=== PATIENT | female | born 1945 | race Caucasian/White ===

== ENCOUNTER 2016-06-30 12:40 | Emergency (ER) | payer MEDICARE, OTHER ==
[2016-06-30] MEDS ORDERED: Aspirin Low Dose CHEW TAB* 81 MG PO ONE (13:59)
[2016-06-30] MEDS ORDERED: NS 0.9% 1000 ML* 1,000 ML IV ONE (14:00)
--- NOTE | 2016-06-30 14:36 | RAD ---
Indication: Chest pain. Single frontal view of the chest performed at 1410 hours was reviewed. Comparison is made with previous exam dated April 16, 2016. No mediastinal shift is noted. Heart is of normal size and configuration. Right upper lobe airspace disease consistent with right upper lobe pneumonia is present. IMPRESSION: RIGHT UPPER LOBE PNEUMONIA.
[2016-06-30 14:56] LABS: Hematocrit 36 % (35-47); Hemoglobin 11.7 g/dl (12.0-16.0); Mean Corpuscular HGB Conc 33 g/dl (31-36); Mean Corpuscular Hemoglobin 31 pg (27-31); Mean Corpuscular Volume 94 fL (80-97); Mean Platelet Volume 8 um3 (7.4-10.4); Red Cell Distribution Width 14 % (10.5-15); White Blood Count 15.3 10^3/ul (3.5-10.8)
[2016-06-30] MEDS ORDERED: Levofloxacin 750 MG IVPREMIX(* 750 MG/150 ML BAG IVPB ONE (15:13)
[2016-06-30 15:31] LABS: Albumin 3.2 g/dL (3.2-5.2); BUN/Creatinine Ratio 21.4 (8-20); Calcium 8.5 mg/dL (8.6-10.3); EGFR African American 137.6 (>60); Globulin 2.6 g/dL (2-4); Magnesium 1.9 mg/dL (1.9-2.7); Potassium 3.5 mmol/L (3.5-5.0); Total Bilirubin 0.4 mg/dL (0.2-1.0); Total Protein 5.8 g/dL (6.4-8.9)
[2016-06-30 15:41] LABS: TSH (Thyroid Stimulating Horm) 0.26 mcIU/mL (0.34-5.60)
[2016-06-30 15:43] LABS: Troponin I 0.01 ng/mL (<0.04)
[2016-06-30 16:27] LABS: Free T4 0.94 ng/dL (0.61-1.12)
[2016-06-30 17:12] VITALS: BP 96/60
--- NOTE | 2016-06-30 18:05 | ED ---
Nikhil Ulloa Michael, scribed for Sd Navarrete MD on 06/30/16 at 1436 . HPI Chest Pain - HPI Summary HPI Summary: 71 y/o female comes to the ED presenting with diffuse CP that started 2 days ago. The CP started suddenly with the pt was at rest watching television. She describes the pain as sharp and stabbing. She also c/o weakness and SOB. The pt' s daughter notes recently she has been falling more frequently. The pt denies n/ v and a cough. The PMHx is significant for COPD and HTN. - History of Current Complaint Chief Complaint: EDChestPainROMI Time Seen by Provider: 06/30/16 14:13 Hx Obtained From: Patient, Family/Station Air Traffic Control Specialist, Medical Records Onset/Duration: Started Days Ago, Still Present Timing: Constant Initial Severity: Moderate Current Severity: Moderate Pain Intensity: 8 Pain Scale Used: 0-10 Numeric Chest Pain Location: Diffuse Chest Pain Radiates: No Aggravating Factor(s): Nothing Alleviating Factor(s): Nothing Associated Signs and Symptoms: Positive: Negative - n/v and cough, Chest Pain, Weakness, Shortness of Breath, Other: - mechanical falls - Additional Pertinent History Primary Care Physician: [id number] - Allergy/Home Medications Allergies/Adverse Reactions: Allergies Allergy/AdvReac Type Severity Reaction Status Date / Time Bee Venom Allergy Difficulty Verified 06/30/16 12:43 Breathing PMH/Surg Hx/FS Hx/Imm Hx Endocrine/Hematology History: Denies: Hx Diabetes Cardiovascular History: Reports: Hx Hypertension, Other Cardiovascular Problems/ Disorders - ANXIETY Denies: Hx Congestive Heart Failure, Hx Pacemaker/ICD Respiratory History: Comment Only: Other Respiratory Problems/Disorders - ON O2 AT HOME History: Denies: Hx Renal Disease Sensory History: Reports: Hx Contacts or Glasses Denies: Hx Hearing Aid Opthamlomology History: Reports: Hx Contacts or Glasses Psychiatric History: Reports: Hx Anxiety, Hx Panic Disorder - agoraphobia treated with medication Denies: Hx Eating Disorder, Hx of Violent Episodes Against Others - Immunization History Date of Tetanus Vaccine: NA Infectious Disease History: No Infectious Disease History: Denies: Traveled Outside the [place] in Last 30 Days - Family History Known Family History: Positive: Cardiac Disease, Other - lung CA - Social History Occupation: Retired Lives: With Family Alcohol Use: None Substance Use Type: Reports: None Hx Tobacco Use: Yes Smoking Status (MU): Former Smoker Amount Used/How Often: half ppd Review of Systems Negative: Fever Positive: Chest Pain Positive: Shortness Of Breath. Negative: Cough Negative: Vomiting, Nausea Positive: Weakness - with falls All Other Systems Reviewed And Are Negative: Yes Physical Exam - Summary Physical Exam Summary: VITAL SIGNS: Reviewed. GENERAL: Patient is a thin female who is lying comfortable in the stretcher. Patient is not in any acute respiratory distress. HEAD AND FACE: No signs of trauma. No ecchymosis, hematomas or skull depressions. No sinus tenderness. EYES: PERRLA, EOMI x 2, No injected conjunctiva, no nystagmus. EARS: Hearing grossly intact. Ear canals and tympanic membranes are within normal limits. MOUTH: Oropharynx within normal limits. NECK: Supple, trachea is midline, no adenopathy, no JVD, no carotid bruit, no c- spine tenderness, neck with full ROM. CHEST: Symmetric, no tenderness at palpation LUNGS: Clear to auscultation bilaterally. No wheezing or crackles. CVS: Regular rate and rhythm, S1 and S2 present, no murmurs or gallops appreciated. ABDOMEN: Soft, non-tender. No signs of distention. No rebound no guarding, and no masses palpated. Bowel sounds are normal. EXTREMITIES: FROM in all major joints, no edema, no cyanosis or clubbing. NEURO: Alert and oriented x 3. No acute neurological deficits. Speech is normal and follows commands. SKIN: Dry and warm Triage Information Reviewed: Yes Vital Signs On Initial Exam: Initial Vitals Temp Pulse Resp BP Pulse Ox 99.3 F 98 18 98/63 92 06/30/16 12:42 06/30/16 12:42 06/30/16 12:42 06/30/16 12:42 06/30/16 12:42 Vital Signs Reviewed: Yes Diagnostics - Vital Signs Vital Signs Temp Pulse Resp BP Pulse Ox 06/30/16 13:55 97.6 F 80 16 82/55 99 06/30/16 12:42 99.3 F 98 18 98/63 92 - Laboratory Lab Results: Lab Results 06/30/16 06/30/16 06/30/16 Range/Units 14:35 14:35 14:35 WBC 15.3 H (3.5-10.8) 10^3/ul RBC 3.80 L (4.0-5.4) 10^6/ul Hgb 11.7 L (12.0-16.0) g/dl Hct 36 (35-47) % MCV 94 (80-97) fL MCH 31 (27-31) pg MCHC 33 (31-36) g/dl RDW 14 (10.5-15) % Plt Count 238 (150-450) 10^3/ul MPV 8 (7.4-10.4) um3 Neut % (Auto) 86.1 H (38-83) % Lymph % (Auto) 9.4 L (25-47) % Sequoyah % (Auto) 4.3 (1-9) % Eos % (Auto) 0 (0-6) % Baso % (Auto) 0.2 (0-2) % Absolute Neuts (auto) 13.2 H (1.5-7.7) 10^3/ul Absolute Lymphs (auto) 1.4 (1.0-4.8) 10^3/ul Absolute Monos (auto) 0.7 (0-0.8) 10^3/ul Absolute Eos (auto) 0 (0-0.6) 10^3/ul Absolute Basos (auto) 0 (0-0.2) 10^3/ul Absolute Nucleated RBC 0 10^3/ul Nucleated RBC % 0 INR (Anticoag Therapy) (0.89-1.11) Sodium (133-145) mmol/L Potassium (3.5-5.0) mmol/L Chloride (101-111) mmol/L Carbon Dioxide (22-32) mmol/L Anion Gap (2-11) mmol/L BUN (6-24) mg/dL Creatinine (0.51-0.95) mg/dL Est GFR ( Amer) (>60) Est GFR (Non-Af Amer) (>60) BUN/Creatinine Ratio (8-20) Glucose (70-100) mg/dL Lactic Acid 0.9 (0.5-2.0) mmol/L Calcium (8.6-10.3) mg/dL Magnesium (1.9-2.7) mg/dL Total Bilirubin (0.2-1.0) mg/dL AST (13-39) U/L ALT (7-52) U/L Alkaline Phosphatase (34-104) U/L CK-MB (CK-2) (0.6-6.3) ng/mL Troponin I (<0.04) ng/mL B-Natriuretic Peptide ( - 100) pg/mL Total Protein (6.4-8.9) g/dL Albumin (3.2-5.2) g/dL Globulin (2-4) g/dL Albumin/Globulin Ratio (1-3) TSH 0.26 L (0.34-5.60) mcIU/mL 06/30/16 06/30/16 06/30/16 Range/Units 14:35 15:07 15:07 WBC (3.5-10.8) 10^3/ul RBC (4.0-5.4) 10^6/ul Hgb (12.0-16.0) g/dl Hct (35-47) % MCV (80-97) fL MCH (27-31) pg MCHC (31-36) g/dl RDW (10.5-15) % Plt Count (150-450) 10^3/ul MPV (7.4-10.4) um3 Neut % (Auto) (38-83) % Lymph % (Auto) (25-47) % Sequoyah % (Auto) (1-9) % Eos % (Auto) (0-6) % Baso % (Auto) (0-2) % Absolute Neuts (auto) (1.5-7.7) 10^3/ul Absolute Lymphs (auto) (1.0-4.8) 10^3/ul Absolute Monos (auto) (0-0.8) 10^3/ul Absolute Eos (auto) (0-0.6) 10^3/ul Absolute Basos (auto) (0-0.2) 10^3/ul Absolute Nucleated RBC 10^3/ul Nucleated RBC % INR (Anticoag Therapy) 1.30 H (0.89-1.11) Sodium 138 (133-145) mmol/L Potassium 3.5 (3.5-5.0) mmol/L Chloride 103 (101-111) mmol/L Carbon Dioxide 27 (22-32) mmol/L Anion Gap 8 (2-11) mmol/L BUN 12 (6-24) mg/dL Creatinine 0.56 (0.51-0.95) mg/dL Est GFR ( Amer) 137.6 (>60) Est GFR (Non-Af Amer) 107.0 (>60) BUN/Creatinine Ratio 21.4 H (8-20) Glucose 104 H (70-100) mg/dL Lactic Acid (0.5-2.0) mmol/L Calcium 8.5 L (8.6-10.3) mg/dL Magnesium 1.9 (1.9-2.7) mg/dL Total Bilirubin 0.40 (0.2-1.0) mg/dL AST 7 L (13-39) U/L ALT 5 L (7-52) U/L Alkaline Phosphatase 69 (34-104) U/L CK-MB (CK-2) 2.3 (0.6-6.3) ng/mL Troponin I 0.01 (<0.04) ng/mL B-Natriuretic Peptide 172 H ( - 100) pg/mL Total Protein 5.8 L (6.4-8.9) g/dL Albumin 3.2 (3.2-5.2) g/dL Globulin 2.6 (2-4) g/dL Albumin/Globulin Ratio 1.2 (1-3) TSH (0.34-5.60) mcIU/mL Result Diagrams: 06/30/16 14:35 06/30/16 15:07 Lab Statement: Any lab studies that have been ordered have been reviewed, and results considered in the medical decision making process. - Radiology CXR Xray Interpretation: Positive (See Comments) - Right upper lobe PNA Radiology Interpretation Completed By: Radiologist - EKG EK EKG Rhythm: Sinus Rhythm - 84 bpm EKG Interpretation: no st elevation Chest Pain Course/Dx - Course Course Of Treatment: 71 y/o female comes to the ED presenting with diffuse CP that started 2 days ago. The CP started suddenly with the pt was at rest watching television. She describes the pain as sharp and stabbing. She also c/o weakness and SOB. The pt's daughter notes recently she has been falling more frequently. The pt denies n/v and a cough. The PMHx is significant for COPD and HTN. The blood work shows WBC of 15.3, glucose of 104, and BNP of 172. The CXR shows right upper lobe PNA. ED course, the patient was given 1 dose of levofloxacin howerever, I noticed the patient takes Seroquel, therefore she is prescribed cefuroxime. At this point the patient is hemodynamically stable and alert/oriented x3. I discussed all the findings and test results with the patient. Patient was instructed to return to the emergency room immediately if any of the symptoms return or worsens. Plan of care was discussed with the patient and understands and agrees. All questions were answered at patient satisfaction. There were no further complaints or concerns. Lung exam before discharge: CTA B/L. Good air exchange. No wheezing or crackles heard. CVS: S1 and S2 present. No murmurs appreciated. Patient is alert and oriented x 3. Patient is hemodynamically stable. Patient will be discharged home with follow up freight coordinator in the next 2-3 days - Chest Pain Differential Diagnosis/HQI/PQRI: ACS, Chest Wall, GI Disease, Lower Respiratory Infection - Diagnoses Provider Diagnoses: Right upper lobe pneumonia Discharge - Discharge Plan Condition: Stable Disposition: HOME Prescriptions: ceFUROXime TAB(*) [Ceftin TAB 250 MG(*)] 500 mg PO BID #20 tab Patient Education Materials: Pneumonia (ED) Referrals: Adeel Jaime MD [Primary Care Provider] - Additional Instructions: You will follow up with Dr. Jaime within the next 2 days. The documentation as recorded by the Nikhil faye Michael accurately reflects the service I personally performed and the decisions made by me, Sd Navarrete MD.
== END 2016-06-30 17:11 | disposition home or self-care (01) ==
LOC: ED 12:40
DX: J18.9 Pneumonia, unspecified organism (principal); R05 Cough; R11.2 Nausea with vomiting, unspecified; R07.9 Chest pain, unspecified; R53.1 Weakness; R06.02 Shortness of breath; Z87.891 Personal history of nicotine dependence
CPT/HCPCS: 36415; 71010; 80053; 82553; 83605; 83735; 83880; 84439; 84443; 84484; 85025; 85610; 87040; 93005; 99283; A9270-GY

== ENCOUNTER 2016-07-03 12:42 | Emergency (ER) | payer MEDICARE, OTHER ==
[2016-07-03 15:05] LABS: Hematocrit 36 % (35-47); Hemoglobin 11.9 g/dl (12.0-16.0); Mean Corpuscular HGB Conc 33 g/dl (31-36); Mean Corpuscular Hemoglobin 31 pg (27-31); Mean Corpuscular Volume 93 fL (80-97); Mean Platelet Volume 7 um3 (7.4-10.4); Red Blood Count 3.86 10^6/ul (4.0-5.4); Red Cell Distribution Width 14 % (10.5-15); White Blood Count 6.7 10^3/ul (3.5-10.8)
--- NOTE | 2016-07-03 15:22 | RAD ---
INDICATION: Right upper lobe infiltrate COMPARISON: June 30, 2016 TECHNIQUE: PA and lateral dual-energy views were obtained. FINDINGS: Bones/Soft Tissues: There are no acute bony findings. Cardiomediastinal: The cardiomediastinal silhouette is normal. Lungs: There is hyperinflation. There is a right upper lobe infiltrate with partial resolution. The remaining lung goff are clear. Pleura: Mild biapical scarring. Other: None IMPRESSION: SIGNIFICANT INTERVAL IMPROVEMENT IN THE RIGHT UPPER LOBE INFILTRATE. HYPERINFLATION.
[2016-07-03 15:24] LABS: Troponin I 0.01 ng/mL (<0.04)
[2016-07-03 15:26] LABS: Albumin 3.5 g/dL (3.2-5.2); BUN/Creatinine Ratio 17.5 (8-20); Calcium 9.1 mg/dL (8.6-10.3); EGFR African American 202.9 (>60); EGFR Non-African American 157.8 (>60); Globulin 3.2 g/dL (2-4); Potassium 3.4 mmol/L (3.5-5.0); Total Bilirubin 0.5 mg/dL (0.2-1.0); Total Protein 6.7 g/dL (6.4-8.9)
[2016-07-03 15:47] LABS: C Reactive Protein 225.95 mg/L (< 5.00)
[2016-07-03 16:07] VITALS: BP 149/82
--- NOTE | 2016-07-03 20:46 | ED ---
Jakob Ulloa Erika, scribed for Tomasz Haile MD on 07/03/16 at 1414 . HPI Chest Pain - HPI Summary HPI Summary: Patient is a 71-year-old female presenting to the ED with a CC of chest pain starting 2 days ago. Patient reports that she has had right anterior chest pain which is aggravated by breathing, palpation, and movement. Patient was recently diagnosed with pneumonia, and still notes a productive cough as well as a low- grade fever last night. Pt is followed by Dr. Jaime. - History of Current Complaint Chief Complaint: EDShortnessOfBreath Hx Obtained From: Patient, Family/Cupola Repairer Onset/Duration: Started Days Ago, Atraumatic, Still Present Current Severity: Moderate Pain Intensity: 2 Pain Scale Used: 0-10 Numeric Chest Pain Location: Right Anterior Aggravating Factor(s): Movement, Deep Breaths, Other: - palpation Associated Signs and Symptoms: Positive: Fever, Productive Cough - Additional Pertinent History Primary Care Physician: NOHELIA - Allergy/Home Medications Allergies/Adverse Reactions: Allergies Allergy/AdvReac Type Severity Reaction Status Date / Time Bee Venom Allergy Difficulty Verified 06/30/16 12:43 Breathing PMH/Surg Hx/FS Hx/Imm Hx Endocrine/Hematology History: Denies: Hx Diabetes Cardiovascular History: Reports: Hx Hypertension, Other Cardiovascular Problems/ Disorders - ANXIETY Denies: Hx Congestive Heart Failure, Hx Pacemaker/ICD Respiratory History: Comment Only: Other Respiratory Problems/Disorders - ON O2 AT HOME History: Denies: Hx Renal Disease Sensory History: Reports: Hx Contacts or Glasses Denies: Hx Hearing Aid Opthamlomology History: Reports: Hx Contacts or Glasses Psychiatric History: Reports: Hx Anxiety, Hx Panic Disorder - agoraphobia treated with medication Denies: Hx Eating Disorder, Hx of Violent Episodes Against Others - Immunization History Date of Tetanus Vaccine: NA Infectious Disease History: No Infectious Disease History: Denies: Traveled Outside the [place] in Last 30 Days - Family History Known Family History: Positive: Cardiac Disease, Other - lung CA - Social History Alcohol Use: None Substance Use Type: Reports: None Hx Tobacco Use: Yes Smoking Status (MU): Former Smoker Amount Used/How Often: half ppd Review of Systems Positive: Fever Positive: Chest Pain Positive: Cough All Other Systems Reviewed And Are Negative: Yes Physical Exam Triage Information Reviewed: Yes Vital Signs On Initial Exam: Initial Vitals Temp Pulse Resp BP Pulse Ox 99.2 F 89 18 126/59 93 07/03/16 12:45 07/03/16 12:45 07/03/16 12:45 07/03/16 12:45 07/03/16 12:45 Vital Signs Reviewed: Yes Appearance: Positive: Well-Appearing, No Pain Distress, Well-Nourished Skin: Positive: Warm, Skin Color Reflects Adequate Perfusion, Dry Head/Face: Positive: Normal Head/Face Inspection Eyes: Positive: Normal ENT: Positive: Other - dry mucus membranes Neck: Positive: Supple, Nontender Respiratory/Lung Sounds: Positive: Clear to Auscultation, Breath Sounds Present Cardiovascular: Positive: RRR Abdomen Description: Positive: Nontender, Soft Bowel Sounds: Positive: Present Musculoskeletal: Positive: Normal Neurological: Positive: Normal Psychiatric: Positive: Affect/Mood Appropriate Diagnostics - Vital Signs Vital Signs Temp Pulse Resp BP Pulse Ox 07/03/16 12:45 99.2 F 89 18 126/59 93 - Laboratory Lab Results: Lab Results 07/03/16 07/03/16 07/03/16 Range/Units 14:54 14:54 14:54 WBC 6.7 (3.5-10.8) 10^3/ul RBC 3.86 L (4.0-5.4) 10^6/ul Hgb 11.9 L (12.0-16.0) g/dl Hct 36 (35-47) % MCV 93 (80-97) fL MCH 31 (27-31) pg MCHC 33 (31-36) g/dl RDW 14 (10.5-15) % Plt Count 367 (150-450) 10^3/ul MPV 7 L (7.4-10.4) um3 Neut % (Auto) 78.7 (38-83) % Lymph % (Auto) 16.5 L (25-47) % Mccreary % (Auto) 4.3 (1-9) % Eos % (Auto) 0.1 (0-6) % Baso % (Auto) 0.4 (0-2) % Absolute Neuts (auto) 5.3 (1.5-7.7) 10^3/ul Absolute Lymphs (auto) 1.1 (1.0-4.8) 10^3/ul Absolute Monos (auto) 0.3 (0-0.8) 10^3/ul Absolute Eos (auto) 0 (0-0.6) 10^3/ul Absolute Basos (auto) 0 (0-0.2) 10^3/ul Absolute Nucleated RBC 0.01 10^3/ul Nucleated RBC % 0.1 Sodium 138 (133-145) mmol/L Potassium 3.4 L (3.5-5.0) mmol/L Chloride 103 (101-111) mmol/L Carbon Dioxide 26 (22-32) mmol/L Anion Gap 9 (2-11) mmol/L BUN 7 (6-24) mg/dL Creatinine 0.40 L (0.51-0.95) mg/dL Est GFR ( Amer) 202.9 (>60) Est GFR (Non-Af Amer) 157.8 (>60) BUN/Creatinine Ratio 17.5 (8-20) Glucose 98 (70-100) mg/dL Lactic Acid 0.9 (0.5-2.0) mmol/L Calcium 9.1 (8.6-10.3) mg/dL Total Bilirubin 0.50 (0.2-1.0) mg/dL AST 36 (13-39) U/L ALT 20 (7-52) U/L Alkaline Phosphatase 75 (34-104) U/L Troponin I 0.01 (<0.04) ng/mL C-Reactive Protein 225.95 H (< 5.00) mg/L Total Protein 6.7 (6.4-8.9) g/dL Albumin 3.5 (3.2-5.2) g/dL Globulin 3.2 (2-4) g/dL Albumin/Globulin Ratio 1.1 (1-3) Result Diagrams: 07/03/16 14:54 07/03/16 14:54 Lab Statement: Any lab studies that have been ordered have been reviewed, and results considered in the medical decision making process. - Radiology CXR Radiology Interpretation Completed By: Radiologist - IMPRESSION: SIGNIFICANT INTERVAL IMPROVEMENT IN THE RIGHT UPPER LOBE INFILTRATE. HYPERINFLATION. - EKG 13:43 EKG Interpretation: Bigeminy at 102 bpm. No ischemic changes. Otherwise unchanged from 06/30/16 Re-Evaluation - Re-Evaluation First Eval Re-Evaluation Time: 15:58 Comment: Discussed lab and imaging results with patient. She will be discharged at this time Chest Pain Course/Dx - Course Course Of Treatment: Ms. Lou's only C/O to me was that her chest hurt when she breathed, moved or touched it. Her breathing itself was no worse. She was found to be improving based on CXR and labs and I will treat her symptomatically. - Diagnoses Provider Diagnoses: Chest wall pain Discharge - Discharge Plan Condition: Stable Disposition: HOME Prescriptions: HYDROcodone/ACETAMIN 5-325 MG* [[place] 5-325 TAB*] 1 tab PO Q6H PRN #20 tab MDD 4 PRN Reason: Pain Patient Education Materials: Chest Wall Pain (ED), Pneumonia (ED) Referrals: Adeel Jaime MD [Primary Care Provider] - Additional Instructions: Pneumonia is resolving. The documentation as recorded by the Jakob faye Erika accurately reflects the service I personally performed and the decisions made by me, Tomasz Haile MD.
== END 2016-07-03 16:05 | disposition home or self-care (01) ==
LOC: ED 12:42
DX: R07.89 Other chest pain (principal); Z87.891 Personal history of nicotine dependence; R05 Cough
CPT/HCPCS: 36415; 71020; 80053; 83605; 84484; 85025; 86140; 93005; 99283

== ENCOUNTER 2016-07-15 12:24 | Emergency (ER) | payer MEDICARE, OTHER ==
--- NOTE | 2016-07-15 14:07 | ED ---
Upper Extremity Pain - HPI Summary HPI Summary: Pt here w/ Lt hand pain that kept her up last night. She's a poor historian and her had surgery on his jaw and is barely comprehendible. Between the 2 of them, it sounds like she's had B/L hand pain for years, but especially the Lt after a "jamming" injury. She can't tell me what her pain feels like but when offered types of pain, she agrees w/ burning and sharp pain. Was so bad, she couldn't sleep last night. Denies injury but her reports she fell 2 weeks ago - she nor he is sure if she hurt this area. No other areas of pain to report. Called PCP as pt is not sure what meds she takes. Nurse reports she takes: *Ativan *hydrocodone *lomotil *metoprolol *seroquel *sertraline *valium Spoke w/ PCP who states she has a dx of RSD - complex regional pain syndrome since 2011. She has trialed many medications, including gabapentin. Currently take hydrocodone for this pain and per PCP, family has voiced concern that she' s abusing this. He does not see NSAID's in her medlist and denies h/o ulcer or reactions to NSAID's in her chart. Okay to try this today. Will also order imaging of the area with recent fall to r/o fx. - History of Current Complaint Chief Complaint: EDExtremityUpper Stated Complaint: PAIN IN HANDS / UNABLE TO SLEEP Time Seen by Provider: 07/15/16 13:46 Hx Obtained From: Patient, Family/Esthetician - , PCP (Dr. Savage) - Allergies/Home Medications Allergies/Adverse Reactions: Allergies Allergy/AdvReac Type Severity Reaction Status Date / Time Bee Venom Allergy Difficulty Verified 06/30/16 12:43 Breathing PMH/Surg Hx/FS Hx/Imm Hx Previously Healthy: Yes - recovered from pneumonia ealier this month Endocrine/Hematology History: Denies: Hx Anticoagulant Therapy, Hx Blood Disorders, Hx Diabetes, Hx Unexplained Bleeding Cardiovascular History: Reports: Hx Hypertension, Other Cardiovascular Problems/ Disorders - ANXIETY Denies: Hx Congestive Heart Failure, Hx Pacemaker/ICD Respiratory History: Comment Only: Other Respiratory Problems/Disorders - ON O2 AT HOME GI History: Denies: Hx Ulcer History: Denies: Hx Renal Disease Musculoskeletal History: Reports: Other Musculoskeletal History - RSD Lt hand since 2011 d/t worker's comp injury- take hydrocodone via PCP Sensory History: Reports: Hx Contacts or Glasses Denies: Hx Hearing Aid Opthamlomology History: Reports: Hx Contacts or Glasses Neurological History: Reports: Other Neuro Impairments/Disorders - RSD in Lt hand in 2011 d/t worker's comp injury - take hydrocodone via PCP Psychiatric History: Reports: Hx Anxiety, Hx Panic Disorder - agoraphobia treated with medication, Hx Substance Abuse - family concerned about overuse of rx hydrocodone Denies: Hx Eating Disorder, Hx of Violent Episodes Against Others - Immunization History Date of Tetanus Vaccine: NA Infectious Disease History: No Infectious Disease History: Denies: Traveled Outside the [place] in Last 30 Days - Family History Known Family History: Positive: Cardiac Disease, Other - lung CA - Social History Occupation: Retired - house keeper [place] Lives: With Family Alcohol Use: None Substance Use Type: Reports: None Hx Tobacco Use: Yes Smoking Status (MU): Former Smoker Amount Used/How Often: half ppd Review of Systems Negative: Fever, Chills Negative: Chest Pain Negative: Shortness Of Breath Negative: Vomiting, Diarrhea Positive: no symptoms reported Musculoskeletal: Other - see HPI Negative: Rash, Bruising Neurological: Other - see HPI Psychological: Other - reports she has depression All Other Systems Reviewed And Are Negative: Yes Physical Exam Triage Information Reviewed: Yes Vital Signs On Initial Exam: Initial Vitals Temp Pulse Resp BP Pulse Ox 99.2 F 116 18 122/83 97 07/15/16 12:28 07/15/16 12:28 07/15/16 12:28 07/15/16 12:28 07/15/16 12:28 Vital Signs Reviewed: Yes Appearance: Positive: Well-Appearing, No Pain Distress - at rest - complains of pain w/ movement or touching Lt hand/wrist, Thin Skin: Positive: Warm, Dry - no erythema, no ecchymosis, no vesicles, no edema over affected area Head/Face: Positive: Normal Head/Face Inspection Eyes: Positive: EOMI, Conjunctiva Clear Neck: Positive: Supple, Nontender Respiratory/Lung Sounds: Positive: Clear to Auscultation, Breath Sounds Present Cardiovascular: Positive: Normal, Pulses are Symmetrical in both Upper and Lower Extremities Abdomen Description: Positive: Nontender, Soft Musculoskeletal: Positive: Strength/ROM Intact - complains of pain w/ gripping w / Lt hand and moving Lt wrist - no pain w/ elbow movement Neurological: Positive: Sensory/Motor Intact, CN Intact II-III, Other - not oriented to time. Negative: Alert, Oriented to Person Place, Time Psychiatric: Positive: Other - guarded - doesn't say much, looks to for assistance w/ explanations; appears concerned - poor historian Diagnostics - Vital Signs Vital Signs Temp Pulse Resp BP Pulse Ox 07/15/16 12:28 99.2 F 116 18 122/83 97 - Laboratory Lab Statement: Any lab studies that have been ordered have been reviewed, and results considered in the medical decision making process. Course/Dx - Course Course Of Treatment: Spoke w/ PCP who states he follows pt for her tx of Complex Regional Pain Syndrome. Assesed XR w/ reporting recent fall and pt's thin body habitus but no fx or dislocation present. Exacerbation of pain from baseline may be d/t recent fall. Provided conservative care here today and advised to f/u w/ PCP for further assesment and tx as necessary. - Diagnoses Provider Diagnoses: COMPLEX REGIONAL PAIN SYNDROME Discharge - Discharge Plan Condition: Stable Disposition: HOME Patient Education Materials: Complex Regional Pain Syndrome (GEN) Referrals: Adeel Jaime MD [Primary Care Provider] - Additional Instructions: Your XR's today appears normal. You have a diagnosis of RSD aka Complex Regional Syndrome. This may cause pain of which you are aware as you have had this for years. You may continue to take your hydrocodone for this. You may also try heat or cold as well as ibuprofen 600mg every 6 hours with food for pain control. If pain persists, follow-up with PCP who has a better idea of treatments that may or may not work for you as you have been following with him for this chronic pain issue. You may also benefit from a pain management referral which your PCP can arrange for you if appropriate. *If you develop fever, chills, swelling of hand, return to ED
[2016-07-15] MEDS ORDERED: Ibuprofen TAB* 600 MG PO ONE (14:18)
--- NOTE | 2016-07-15 15:41 | RAD ---
INDICATION: LEFT forearm and wrist pain post fall a week ago. COMPARISON: None. TECHNIQUE: AP, lateral views LEFT hand. AP and lateral views LEFT forearm. REPORT: Negative for fracture or malalignment at the forearm. Unremarkable forearm soft tissue contours. Negative for fracture or articular malalignment the hand. Bone density appears decreased throughout. No significant arthropathic change evident. Unremarkable soft tissue contours. IMPRESSION: No traumatic injury evident at the LEFT forearm or hand.
[2016-07-15 15:53] VITALS: BP 136/78
== END 2016-07-15 15:52 | disposition home or self-care (01) ==
LOC: ED 12:24
DX: G90.50 Complex regional pain syndrome I, unspecified (principal); M79.642 Pain in left hand; Z87.891 Personal history of nicotine dependence
CPT/HCPCS: 99281; A9270-GY